=== PATIENT | male | born 1945 | race Caucasian/White ===

== ENCOUNTER 2018-06-09 14:54 | Emergency (ER) | payer SELFPAY ==
[~2018-06-09] VITALS: Ht 157.5 cm; Wt 72.0 kg
[2018-06-09 18:29] VITALS: BP 146/115
== END 2018-06-09 18:39 | disposition home or self-care (01) ==
LOC: ER 14:54
DX: S00.81XA Abrasion of other part of head, initial encounter (principal); W01.0XXA Fall on same level from slipping, tripping and stumbling without subsequent striking against object, initial encounter; Y93.89 Activity, other specified; Y92.018 Other place in single-family (private) house as the place of occurrence of the external cause
CPT/HCPCS: 99284